=== PATIENT | female | born 2000 | race Caucasian/White ===

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

== ENCOUNTER 2018-01-25 07:48 | Emergency (ER) | payer MEDICAID ==
[2018-01-25 08:17] LABS: BASOPHILS 0.2 % (0-2); EOSINOPHILS 0.8 % (0-7); HEMATOCRIT 37.9 % (36.0-48.0); HEMOGLOBIN 12.6 g/dL (12-16); IMMATURE GRANULOCYTES 0.2 % (0-5); LYMPHOCYTES 25.2 % (15-50); MCH 28.6 pg (26.0-34.0); MCHC 33.2 g/dL (31.0-37.0); MCV 86.1 fL (80.0-100.0); MEAN PLATELET VOLUME 11.2 fL (7.4-10.4); MONOCYTES 9.3 % (2-11); NEUTROPHILS 64.3 % (40-80); PLATELET COUNT 246 10x3/uL (130-400); RDW 13.7 % (11.5-14.5); WBC 6.2 10x3/uL (4.8-10.8)
[2018-01-25 08:35] LABS: ALBUMIN 3.4 g/dL (3.4-5.0); ALKALINE PHOSPHATASE 77 U/L (46-116); ALT (SGPT) 20 U/L (10-68); AMYLASE - SERUM 33 U/L (25-115); BILIRUBIN - TOTAL 0.53 mg/dL (0.2-1.3); CALC OSMOLALITY 280 mosm/kg (275-300); CALCIUM 9.1 mg/dL (8.5-10.1); CARBON DIOXIDE 25.4 mmol/L (21.0-32.0); CHLORIDE - SERUM 107 mmol/L (98-107); CREATININE - SERUM 0.7 mg/dL (0.6-1.3); GLUCOSE 101 mg/dL (74-106); POTASSIUM - SERUM 3.5 mmol/L (3.5-5.1); PROTEIN - SERUM 7.1 g/dL (6.4-8.2); SODIUM 142 mmol/L (136-145); UREA NITROGEN 7 mg/dL (7-18); eGFR NON AFRICAN AMERICAN > 90 mL/min (90-120)
[2018-01-25 08:36] LABS: HCG SERUM NEGATIVE (NEGATIVE); LIPASE 48 U/L (73-393)
[2018-01-25 09:30] LABS: AMORPHOUS SEDIMENT >1+ /lpf (NONE SEEN); APPEARANCE CLOUDY (CLEAR); BACTERIA FEW /hpf (NONE SEEN); BILIRUBIN NEGATIVE (NEGATIVE); COLOR YELLOW (YELLOW); EPITHELIAL CELLS 0-5 /hpf (0-5); GLUCOSE NEGATIVE (NEGATIVE); GRANULAR CAST RARE /lpf (NONE SEEN); KETONE NEGATIVE (NEGATIVE); MUCUS >1+ /lpf (NONE SEEN); NITRITE NEGATIVE (NEGATIVE); PROTEIN NEGATIVE (NEGATIVE); SPECIFIC GRAVITY 1.025 (1.005-1.020); UROBILINOGEN NORMAL (NORMAL); WHITE CELLS - URINE RARE /hpf (0-5)
== END 2018-01-25 10:15 | disposition home or self-care (01) ==
LOC: D.ER 07:48
PROVIDERS: Family Medicine
DX: R10.9 Unspecified abdominal pain (principal); N94.6 Dysmenorrhea, unspecified; F98.8 Other specified behavioral and emotional disorders with onset usually occurring in childhood and adolescence; F90.9 Attention-deficit hyperactivity disorder, unspecified type

== ENCOUNTER 2018-01-26 11:55 | Emergency (ER) | payer MEDICAID ==
[2018-01-26 12:32] LABS: BASOPHILS 0.1 % (0-2); EOSINOPHILS 0 % (0-7); HEMATOCRIT 40.2 % (36.0-48.0); HEMOGLOBIN 13.3 g/dL (12-16); IMMATURE GRANULOCYTES 0.1 % (0-5); LYMPHOCYTES 10.2 % (15-50); MCH 28.5 pg (26.0-34.0); MCHC 33.1 g/dL (31.0-37.0); MCV 86.1 fL (80.0-100.0); MEAN PLATELET VOLUME 11.3 fL (7.4-10.4); MONOCYTES 3.9 % (2-11); NEUTROPHILS 85.7 % (40-80); PLATELET COUNT 271 10x3/uL (130-400); RBC 4.67 10x6/uL (4.00-5.40); RDW 13.7 % (11.5-14.5)
[2018-01-26 12:35] LABS: WBC 9.3 10x3/uL (4.8-10.8)
[2018-01-26 12:48] LABS: ALBUMIN 3.7 g/dL (3.4-5.0); ALKALINE PHOSPHATASE 88 U/L (46-116); ALT (SGPT) 22 U/L (10-68); AMYLASE - SERUM 36 U/L (25-115); BILIRUBIN - TOTAL 0.57 mg/dL (0.2-1.3); CALC OSMOLALITY 280 mosm/kg (275-300); CALCIUM 9.1 mg/dL (8.5-10.1); CARBON DIOXIDE 26.9 mmol/L (21.0-32.0); CHLORIDE - SERUM 105 mmol/L (98-107); CREATININE - SERUM 0.7 mg/dL (0.6-1.3); GLUCOSE 122 mg/dL (74-106); POTASSIUM - SERUM 3.5 mmol/L (3.5-5.1); PROTEIN - SERUM 7.7 g/dL (6.4-8.2); SODIUM 141 mmol/L (136-145); eGFR NON AFRICAN AMERICAN > 90 mL/min (90-120)
[2018-01-26 12:49] LABS: LIPASE 44 U/L (73-393); UREA NITROGEN 10 mg/dL (7-18)
[2018-01-26 13:59] LABS: APPEARANCE TURBID (CLEAR); BILIRUBIN NEGATIVE (NEGATIVE); COLOR YELLOW (YELLOW); GLUCOSE NEGATIVE (NEGATIVE); KETONE MODERATE mg/dL (NEGATIVE); NITRITE NEGATIVE (NEGATIVE); PROTEIN TRACE mg/dL (NEGATIVE); SPECIFIC GRAVITY 1.025 (1.005-1.020); UROBILINOGEN NORMAL (NORMAL)
[2018-01-26 14:01] LABS: AMORPHOUS SEDIMENT >1+ /lpf (NONE SEEN); BACTERIA MODERATE /hpf (NONE SEEN); EPITHELIAL CELLS OCC /hpf (0-5); WHITE CELLS - URINE 0-5 /hpf (0-5)
== END 2018-01-26 16:46 | disposition home or self-care (01) ==
LOC: D.ER 11:55
PROVIDERS: Family Medicine
DX: R10.9 Unspecified abdominal pain (principal); F90.9 Attention-deficit hyperactivity disorder, unspecified type

== ENCOUNTER 2018-03-05 17:25 | Emergency (ER) | payer MEDICAID ==
[~2018-03-05] VITALS: Ht 160 cm; Wt 138.2 kg
[2018-03-05 18:09] VITALS: BP 128/84; Ht 160 cm; Wt 138.2 kg
== END 2018-03-05 20:37 | disposition left against medical advice (07) ==
LOC: D.ER 17:25
DX: T78.40XA Allergy, unspecified, initial encounter (principal); X58.XXXA Exposure to other specified factors, initial encounter

== ENCOUNTER 2018-05-10 07:25 | Emergency (ER) | payer MEDICAID ==
[~2018-05-10] VITALS: Ht 160 cm; Wt 123.6 kg
[2018-05-10 07:29] VITALS: Ht 160 cm; Wt 123.6 kg
[2018-05-10] MEDS ORDERED: GEODON20 MG (07:51)
[2018-05-10] MEDS ORDERED: GEODON20 MG PO (07:51)
[2018-05-10] MEDS ORDERED: PROZAC10 MG PO (07:52)
[2018-05-10 07:58] LABS: HEMATOCRIT 37.9 % (36.0-48.0); HEMOGLOBIN 12.5 g/dL (12-16); LYMPHOCYTES 13.5 % (15-50); MCH 28.6 pg (26.0-34.0); MCV 86.7 fL (80.0-100.0); MEAN PLATELET VOLUME 11.3 fL (7.4-10.4); NEUTROPHILS 79.9 % (40-80); RBC 4.37 10x6/uL (4.00-5.40); RDW 13.7 % (11.5-14.5); WBC 9.5 10x3/uL (4.8-10.8)
[2018-05-10 08:00] LABS: PLATELET COUNT 203 10x3/uL (130-400)
[2018-05-10 08:16] LABS: ALBUMIN 3.2 g/dL (3.4-5.0); ALKALINE PHOSPHATASE 67 U/L (46-116); ALT (SGPT) 19 U/L (10-68); AMYLASE - SERUM 38 U/L (25-115); CALC OSMOLALITY 279 mosm/kg (275-300); CALCIUM 8.3 mg/dL (8.5-10.1); CARBON DIOXIDE 25.5 mmol/L (21.0-32.0); CHLORIDE - SERUM 107 mmol/L (98-107); CREATININE - SERUM 0.7 mg/dL (0.6-1.3); GLUCOSE 104 mg/dL (74-106); LIPASE 98 U/L (73-393); POTASSIUM - SERUM 3.6 mmol/L (3.5-5.1); PROTEIN - SERUM 6.6 g/dL (6.4-8.2); SODIUM 141 mmol/L (136-145); UREA NITROGEN 10 mg/dL (7-18); eGFR NON AFRICAN AMERICAN > 90 mL/min (90-120)
[2018-05-10 08:17] LABS: HCG URINE NEGATIVE (NEGATIVE)
[2018-05-10 08:20] LABS: APPEARANCE HAZY (CLEAR); BILIRUBIN NEGATIVE (NEGATIVE); COLOR YELLOW (YELLOW); GLUCOSE NEGATIVE (NEGATIVE); KETONE NEGATIVE (NEGATIVE); NITRITE NEGATIVE (NEGATIVE); PROTEIN NEGATIVE (NEGATIVE); SPECIFIC GRAVITY 1.015 (1.005-1.020); UROBILINOGEN NORMAL (NORMAL)
[2018-05-10 08:21] LABS: BACTERIA FEW /hpf (NONE SEEN); EPITHELIAL CELLS RARE /hpf (0-5); RED CELLS - URINE RARE /hpf (0-5)
[2018-05-10] MEDS ORDERED: ZOFRAN4 MG PO (09:56)
[2018-05-10] MEDS ORDERED: PROTONIX40 MG PO (09:56)
[2018-05-10 10:56] VITALS: BP 128/81
== END 2018-05-10 09:50 | disposition home or self-care (01) ==
LOC: D.ER 07:25
PROVIDERS: Family Medicine
DX: K21.9 Gastro-esophageal reflux disease without esophagitis (principal); Z86.59 Personal history of other mental and behavioral disorders

== ENCOUNTER 2018-07-04 13:12 | Emergency (ER) | payer MEDICAID ==
[~2018-07-04] VITALS: Ht 160 cm; Wt 129.5 kg
[~2018-07-04 13:12] MED LIST: GEODON20 MG; GEODON20 MG PO; PROTONIX40 MG PO; PROZAC10 MG PO; ZOFRAN4 MG PO
[2018-07-04 13:25] VITALS: Ht 160 cm; Wt 129.5 kg
[2018-07-04] MEDS ORDERED: ZOFRAN8 MG PO (13:46)
[2018-07-04 14:01] VITALS: BP 142/70
== END 2018-07-04 14:07 | disposition home or self-care (01) ==
LOC: D.ER 13:12
DX: K52.9 Noninfective gastroenteritis and colitis, unspecified (principal)